=== PATIENT | male | born 1945 | race Caucasian/White ===

== ENCOUNTER → 2017-02-09 | Outpatient (CLI) | payer MEDICARE, OTHER ==
[2017-02-09 10:30] LABS: Blood Urea Nitrogen 20 mg/dL (9-20); Non-African American GFR(MDRD) >60 (>60 ml/min/1.73 sqM)
--- NOTE | 2017-02-09 11:12 | CT ---
EXAMINATION TYPE: CT chest wo/w con DATE OF EXAM: 02/09/2017 10:50 AM COMPARISON: 12/07/2015 HISTORY: Pulmonary nodule CT DLP: 1138 mGycm Automated exposure control for dose reduction was used. CONTRAST: CT scan of the chest is performed without and with IV Contrast, patient injected with 100 mL of Omnip aque 300. FINDINGS: LUNGS: Stable 6 mm nodule left upper lobe seen best on image 40. No additional nodules identified. Hy perinflation with COPD. There is no pleural effusion or pneumothorax seen. The tracheobronchial tree is patent. MEDIASTINUM: There are no greater than 1 cm hilar or mediastinal lymph nodes. No pericardial effusi on is seen. Ascending thoracic aortic aneurysm unchanged at 4.1 cm versus 4.1 cm previously. The hear t is not enlarged. UPPER ABDOMEN: Thickening of the left adrenal gland may reflect hyperplasia. Simple hepatic cysts ar e noted measuring up to 1.1 cm. OTHER: No additional significant abnormality is seen. IMPRESSION: 1. Stable left upper lobe nodule. Stability over a two-year timeframe should be documented radiograph ically. 2. COPD. 3. Stable ascending thoracic aortic aneurysm.
== END | disposition home or self-care (01) ==
LOC: RADCTMAIN 09:58
PROVIDERS: ATTEND Family Medicine
DX: R91.1 Solitary pulmonary nodule (principal); J44.9 Chronic obstructive pulmonary disease, unspecified; I71.2 Thoracic aortic aneurysm, without rupture
CPT/HCPCS: 82565; 84520; 71270; 36415; Q9967

== ENCOUNTER 2017-12-05 08:47 | Emergency (ER) | payer MEDICARE, BC ==
[2017-12-05] MEDS ORDERED: ASPIRIN 81 MG PO STA (08:56)
[2017-12-05 09:43] LABS: Basophils % (A) 0 %; Eosinophils # (A) 0.2 k/uL (0-0.7); Eosinophils % (A) 1 %; HGB 16.7 gm/dL (13.0-17.5); Lymphocytes # (A) 1.3 k/uL (1.0-4.8); Lymphocytes % (A) 10 %; MCH 30.1 pg (25.0-35.0); MCHC 33.4 g/dL (31.0-37.0); MCV 90.1 fL (80.0-100.0); Monocytes # (A) 0.9 k/uL (0-1.0); Monocytes % (A) 7 %; Neutrophils # (A) 10.1 k/uL (1.3-7.7); Neutrophils % (A) 80 %; Platelet Count 227 k/uL (150-450); RBC 5.55 m/uL (4.30-5.90); RDW 14.2 % (11.5-15.5); WBC 12.6 k/uL (3.8-10.6)
--- NOTE | 2017-12-05 09:44 | XR ---
EXAMINATION TYPE: XR chest 2V DATE OF EXAM: 12/05/2017 COMPARISON: 02/09/2017 TECHNIQUE: PA and lateral views submitted. HISTORY: Chest pain FINDINGS: The lungs are clear and there is no pneumothorax, pleural effusion, or focal pneumonia. Ascending a april is prominent. Previous CT scan suggested 4.1 cm aneurysmal dilation. Degenerative changes spine noted. Hyperinflation compatible COPD. Chronic rib deformity suggests previous trauma. Arthropathy of the shoulders with diffuse osteopenia. No overt failure. IMPRESSION: 1. No acute process. 2. Correlate for COPD 3. Prominence of the ascending aorta. Previous CT scan suggested aneurysm measuring 4.1 cm. Correlate clinically. 4. 6 mm left upper lobe pulmonary nodule.
[2017-12-05 09:49] LABS: Partial Thromboplastin Time 22.8 sec (22.0-30.0); Prothrombin Time 10.2 sec (9.0-12.0)
[2017-12-05 10:02] LABS: ALT 28 U/L (21-72); AST 18 U/L (17-59); Albumin 4.4 g/dL (3.5-5.0); Alkaline Phosphatase 99 U/L (38-126); Anion Gap 10 mmol/L; Blood Urea Nitrogen 18 mg/dL (9-20); Carbon Dioxide 25 mmol/L (22-30); Chloride 106 mmol/L (98-107); Glucose 95 mg/dL (74-99); Lipase 152 U/L (23-300); Sodium 141 mmol/L (137-145); Total Bilirubin 0.5 mg/dL (0.2-1.3); Total Protein 6.9 g/dL (6.3-8.2)
--- NOTE | 2017-12-05 13:58 | ECHOF ---
Referral Reason:chest pain MEASUREMENTS -------- HEIGHT: 177.8 cm WEIGHT: 72.6 kg BP: 152/98 RVIDd: 3.2 cm (< 3.3) IVSd: 1.2 cm (0.6 - 1.1) LVIDd: 3.9 cm (3.9 - 5.3) LVPWd: 1.2 cm (0.6 - 1.1) IVSs: 1.4 cm LVIDs: 2.6 cm LVPWs: 1.5 cm LAESV Index (A-L): 16.05 ml/m Ao Diam: 3.9 cm (2.0 - 3.7) AV Cusp: 1.7 cm (1.5 - 2.6) LA Diam: 2.0 cm (2.7 - 3.8) EPSS: 1.0 cm MV E Nelson: 0.67 m/s MV DecT: 308 ms MV A Nelson: 0.87 m/s MV E/A Ratio: 0.78 RAP: 5.00 mmHg RVSP: 24.57 mmHg MV EF SLOPE: 60.97 mm/s (70 - 150) MV EXCURSION: 1.47 cm (> 18.000) FINDINGS -------- Sinus rhythm. This was a technically good study. The left ventricular size is normal. There is mild concentric left ventricular hypertrophy. Overa ll left ventricular systolic function is normal with, an EF between 55 - 60 %. The right ventricle is mildly enlarged. Normal LA size by volume 22+/-6 ml/m2. The right atrium is normal in size. Aortic valve is trileaflet and is mildly thickened. Trace to mild aortic regurgitation. There is no evidence of aortic stenosis. The mitral valve leaflets are mildly thickened. There is trace to mild mitral regurgitation. Mild tricuspid regurgitation present. Right ventricular systolic pressure is normal at < 35 mmHg. There is no evidence of pulmonary hypertension. The pulmonic valve was not well visualized. The aortic root is dilated up to 4.2 cm at the siunuses, and the ascending aorta is dilated measuring up to 3.8 cm. Normal inferior vena cava with normal inspiratory collapse consistent with estimated right atrial pre ssure of 5 mmHg. The pericardium is normal. There is no pericardial effusion. CONCLUSIONS -------- 1. Sinus rhythm. 2. This was a technically good study. 3. The left ventricular size is normal. 4. There is mild concentric left ventricular hypertrophy. 5. Overall left ventricular systolic function is normal with, an EF between 55 - 60 %. 6. The right ventricle is mildly enlarged. 7. Normal LA size by volume 22+/-6 ml/m2. 8. Aortic valve is trileaflet and is mildly thickened. 9. Trace to mild aortic regurgitation. 10. The mitral valve leaflets are mildly thickened. 11. There is trace to mild mitral regurgitation. 12. Mild tricuspid regurgitation present. 13. Right ventricular systolic pressure is normal at < 35 mmHg. 14. There is no evidence of pulmonary hypertension. 15. The pulmonic valve was not well visualized. 16. The aortic root is dilated up to 4.2 cm at the siunuses, and the ascending aorta is dilated measu ring up to 3.8 cm. 17. There is no pericardial effusion. HEARINGS REPORTER: Juan Peterson RDCS
[2017-12-05] MEDS ORDERED: RX INFO: IV CONTRAST WAS GIVEN 1 EACH MISC MISCELLANE PRN (14:06)
--- NOTE | 2017-12-05 15:07 | CT ---
EXAMINATION TYPE: CT angio chest DATE OF EXAM: 12/05/2017 COMPARISON: CT chest 02/09/2017, chest x-ray 12/05/2017 HISTORY: Chest pain CT DLP: 186.90 mGycm Automated exposure control for dose reduction was used. CONTRAST: CTA scan of the thorax is performed without and with IV Contrast, patient injected with 100 ml mL of Omnipaque 350, pulmonary embolism protocol. MIP images are created and reviewed. 3D reconstructed i mages are created on an independent workstation and reviewed. FINDINGS: LUNGS: The lungs are grossly clear, there is no concerning parenchymal mass or nodule identified. C entrilobular emphysematous changes are present at the lung apices. Some linear areas of increased att enuation at the posterior lung bases may reflect some local scarring. Subpleural nodularity again not ed and is stable, likely postinflammatory in the left hemithorax laterally. There is no pleural effus ion or pneumothorax seen. The tracheobronchial tree is patent. AORTA: Root of the aorta is dilated at approximately 4.5 cm similar to prior exam. MEDIASTINUM: There is satisfactory enhancement of the pulmonary artery and its branches, there is no CT evidence for pulmonary embolism. There are no greater than 1 cm hilar or mediastinal lymph nodes. There are coronary artery calcifications present. No pericardial effusion is seen. OTHER: Scattered hypodensities again noted within the liver likely are cysts, stable. Small hiatal hernia and prominence of the left adrenal gland again noted. IMPRESSION: NO EVIDENT PULMONARY EMBOLISM. STABLE ASCENDING AORTIC ANEURYSM. CORONARY ARTERY DISEASE AND EMPHYSEM A. ADDITIONAL FINDINGS ABOVE.
[2017-12-05 15:17] VITALS: BP 147/81; PULSE 70; RESP 17; TEMP 97.6
--- NOTE | 2017-12-05 15:20 | ED ---
Chest Pain HPI - General Chief Complaint: Chest Pain Stated Complaint: Chest pain Time Seen by Provider: 12/05/17 08:56 Source: patient Mode of arrival: wheelchair Limitations: no limitations - History of Present Illness Initial Comments: Patient complains of an episode of chest pain this morning. He has a history of hypertension but denies any other medical problems. He has no belly or back pain. He has pain primarily in the left side of the chest, which does not radiate anywhere. It is nonexertional. He has no shortness of breath. He has no palpitations. He has no diaphoresis, nausea or vomiting. He was not doing anything when this began. He has no swelling in the arms or legs. He denies any sick contacts. He has had no travel. - Related Data Home Medications Medication Instructions Recorded Confirmed Aspirin EC [Ecotrin Low Dose] 81 mg PO DAILY 12/05/17 12/05/17 Allergies Allergy/AdvReac Type Severity Reaction Status Date / Time No Known Allergies Allergy Verified 12/05/17 08:59 Review of Systems ROS Statement: Those systems with pertinent positive or pertinent negative responses have been documented in the HPI. ROS Other: All systems not noted in ROS Statement are negative. EKG Findings - EKG Comments: EKG Findings:: Twelve-lead EKG interpreted by me as showing ventricular rate 90 bpm, normal AL interval and QRS complexes, no ST elevation or depression, interpreted by me as normal sinus rhythm. Past Medical History Additional Past Medical History / Comment(s): vertigo History of Any Multi-Drug Resistant Organisms: None Reported Past Surgical History: Orthopedic Surgery Past Psychological History: No Psychological Hx Reported Smoking Status: Current every day smoker Past Alcohol Use History: Occasional Past Drug Use History: None Reported General Exam Limitations: no limitations General appearance: alert, in no apparent distress Head exam: Present: atraumatic, normocephalic, normal inspection Eye exam: Present: normal appearance, PERRL, EOMI. Absent: scleral icterus, conjunctival injection, periorbital swelling ENT exam: Present: normal exam, mucous membranes moist Neck exam: Present: normal inspection. Absent: tenderness, meningismus, lymphadenopathy Respiratory exam: Present: normal lung sounds bilaterally. Absent: respiratory distress, wheezes, rales, rhonchi, stridor Cardiovascular Exam: Present: regular rate, normal rhythm, normal heart sounds. Absent: systolic murmur, diastolic murmur, rubs, gallop, clicks GI/Abdominal exam: Present: soft, normal bowel sounds. Absent: distended, tenderness, guarding, rebound, rigid Extremities exam: Present: normal inspection, full ROM, normal capillary refill. Absent: tenderness, pedal edema, joint swelling, calf tenderness Back exam: Present: normal inspection Neurological exam: Present: alert, oriented X3, CN II-XII intact Psychiatric exam: Present: normal affect, normal mood Skin exam: Present: warm, dry, intact, normal color. Absent: rash Course Vital Signs 12/05/17 12/05/17 12/05/17 08:50 09:41 11:01 Temperature 97.8 F Pulse Rate 105 H 84 89 Respiratory 20 19 19 Rate Blood Pressure 172/96 175/99 152/98 O2 Sat by Pulse 96 97 98 Oximetry 12/05/17 12/05/17 12:20 15:16 Temperature 97.6 F Pulse Rate 76 70 Respiratory 20 17 Rate Blood Pressure 160/97 147/81 O2 Sat by Pulse 97 97 Oximetry Chest Pain [facility] Patient presents with chest pain. I obtained 2 serial troponins which are both negative. X-ray of the chest is unremarkable. I obtained a CT of the chest which is negative for PE, dissection, or any other acute emergency. I obtained an echocardiogram which demonstrates normal cardiac functioning with no evidence of heart failure other emergency. Patient's examination is unremarkable on my reevaluation. He has remained symptom free throughout his stay in the emerge department. At this point time I can identify no acute emergency condition. I did offer the patient admission the hospital for repeat testing, however he states he must go home to take care of his . He will follow-up with his doctor. I instructed him to return to the emergency department immediately if his symptoms return, or if he develops any other problems or complaints. Disposition Clinical Impression: Chest pain Disposition: HOME SELF-CARE Condition: Good Instructions: Chest Pain (ED) Referrals: Jinny Chakraborty DO [Primary Care Provider] - 1-2 days Time of Disposition: 15:19
== END 2017-12-05 15:22 | disposition home or self-care (01) ==
LOC: EC 08:47
DX: R07.9 Chest pain, unspecified (principal); F17.200 Nicotine dependence, unspecified, uncomplicated; Z79.82 Long term (current) use of aspirin
CPT/HCPCS: 36415; 71046; 71275; 80053; 83690; 83735; 83880; 84484; 85025; 85610; 85730; 93005; 93306; 99285

== ENCOUNTER → 2024-08-23 | Outpatient (CLI) | payer MEDICARE, BC ==
[2024-08-23 13:33] LABS: African American GFR (CKD) >90 (>60 ml/min/1.73 sqM); Blood Urea Nitrogen 28 mg/dL (9-20); Non-African American GFR(CKD) 83 (>60 ml/min/1.73 sqM)
--- NOTE | 2024-08-23 14:48 | CT ---
CT urogram. HISTORY: Hematuria COMPARISON: None. TECHNIQUE: Multiple axial images are obtained through the abdomen and pelvis before and after the une ventful administration of nonionic IV contrast. Delayed postcontrast images were obtained. FINDINGS: Lung bases are clear. On the pre-IV contrast images, there are no renal calcifications or ureteral calcifications. There i s a single gallstone. There is no gallbladder distention, wall thickening or pericholecystic fluid. There are multiple well-circumscribed low-density lesions within the liver the largest of which is in the left lobe and measures 3.1 cm. These most likely represent simple hepatic cysts. There is no foc al mass within the pancreas, or spleen. There is a 16 mm low density nodule in the left adrenal gland most likely representing an adenoma. Kidneys excrete contrast promptly and symmetrically and there is no solid renal mass, hydronephrosis or filling defect within the renal collecting systems or ureters. Bladder. There are single small sim ple cortical cysts bilaterally. There is a 15 mm filling defect within the lumen of the urinary bladd er at the right UVJ. There is a 15-16 mm filling defect at the base of the left urinary bladder. Thes e findings are suspicious for neoplasm and further evaluation is warranted. There is moderate to mary ed prostatic hypertrophy with mass effect on the bladder base. The bowel loops are normal in caliber and there is no dilatation or obstruction. No inflammatory oconnor ges are identified in the bowel wall or mesentery. There is no free intraperitoneal air or fluid. There is no pelvic abscess, adenopathy or free fluid. The osseous structures are intact. IMPRESSION: 1. 2 mural and intraluminal filling defects within the urinary bladder base suspicious for neoplasm a nd further evaluation is warranted. 2. Cholelithiasis. 3. No renal calcification or hydronephrosis. 4. Moderate to marked prostatic hypertrophy. 5. Multiple well-circumscribed low density lesions within the liver statistically most likely represe nting hepatic cysts. [facility], , 08/23/2024 2:45 PM
== END | disposition home or self-care (01) ==
LOC: RADCTMAIN 12:45
PROVIDERS: ATTEND Family Medicine
DX: K80.20 Calculus of gallbladder without cholecystitis without obstruction (principal); N40.0 Benign prostatic hyperplasia without lower urinary tract symptoms; K76.9 Liver disease, unspecified
CPT/HCPCS: 82565; 84520; 74178; 36415; 74400; Q9967

== ENCOUNTER 2024-09-20 13:24 | Inpatient (IN) | payer MEDICARE, BC ==
--- NOTE | 2024-09-20 13:53 | ED ---
General Adult HPI - General Chief complaint: Shortness of Breath Stated complaint: SOB Time Seen by Provider: 09/20/24 13:26 Source: patient, RN notes reviewed, old records reviewed Mode of arrival: ambulatory Limitations: no limitations - History of Present Illness Initial comments: 79 male presenting with cough, hypoxia. Patient was here for outpatient bladder procedure and was noted to be hypoxic. He was sent to primary care and the oxygen saturation was 77%. He was sent to the emergency department for evaluation. Patient is a current smoker. He denies subjective fever or chills but is found to be febrile in the emergency department. He reports a productive cough. - Related Data Home Medications Medication Instructions Recorded Confirmed Aspirin EC [Ecotrin Low Dose] 81 mg PO DAILY 12/05/17 12/05/17 Allergies Allergy/AdvReac Type Severity Reaction Status Date / Time No Known Allergies Allergy Verified 09/20/24 13:29 Review of Systems ROS Statement: Those systems with pertinent positive or pertinent negative responses have been documented in the HPI. ROS Other: All systems not noted in ROS Statement are negative. Past Medical History Additional Past Medical History / Comment(s): vertigo History of Any Multi-Drug Resistant Organisms: None Reported Past Surgical History: Orthopedic Surgery Past Psychological History: No Psychological Hx Reported Smoking Status: Current every day smoker Past Alcohol Use History: Occasional Past Drug Use History: None Reported General Exam Limitations: no limitations General appearance: alert, in no apparent distress Head exam: Present: atraumatic, normocephalic Eye exam: Present: normal appearance, PERRL ENT exam: Present: normal exam Neck exam: Present: normal inspection. Absent: tenderness, meningismus Respiratory exam: Present: wheezes, rhonchi, decreased breath sounds. Absent: respiratory distress Cardiovascular Exam: Present: normal rhythm, tachycardia GI/Abdominal exam: Present: soft. Absent: distended, tenderness, guarding Extremities exam: Present: normal inspection, normal capillary refill. Absent: calf tenderness Neurological exam: Present: alert, oriented X3 Psychiatric exam: Present: normal affect, normal mood Skin exam: Present: warm, dry, intact. Absent: cyanosis, diaphoretic Course Vital Signs 09/20/24 09/20/24 09/20/24 13:26 13:56 15:20 Temperature 101.2 F H Pulse Rate 108 H 82 88 Respiratory 20 24 Rate Blood Pressure 116/57 O2 Sat by Pulse 88 L 95 Oximetry 09/20/24 15:39 Temperature Pulse Rate 90 Respiratory Rate Blood Pressure O2 Sat by Pulse Oximetry Medical Decision Making - Medical Decision Making Was pt. sent in by a medical professional or institution ([facility], [employer] READING TEACHER, urgent care, hospital, or snf...) When possible be specific @ -No Did you speak to anyone other than the patient for history (EMS, parent, family, police, friend...)? What history was obtained from this source @ -No Did you review nursing and triage notes (agree or disagree)? Why? @ -I reviewed and agree with nursing and triage notes Were old charts reviewed (outside hosp., previous admission, EMS record, old EKG, old radiological studies, urgent care reports/EKG's, snf records)? Report findings @ -No old charts were reviewed Differential dyspnea EKG interpreted by me (3pts min.). @Sinus tachycardia rate of 108, VA interval 201, QRS duration 92, QTc [address] segment elevation, artifact limiting assessment in the precordial leads. X-rays interpreted by me (1pt min.). @ -None done CT interpreted by me (1pt min.). @ -None done U/S interpreted by me (1pt. min.). @ -None done What testing was considered but not performed or refused? (CT, X-rays, U/S, labs)? Why? @ -None What meds were considered but not given or refused? Why? @ -None Did you discuss the management of the patient with other professionals (professionals i.e. [facility], [employer] READING TEACHER, lab, RT, psych nurse, social work coordinator, antique furniture repairer, teacher, chief nursing officer, case resolution specialist)? Give summary @ -Discussed with Dr. Murray who who will admit. Was smoking cessation discussed for >3mins.? @ -No Was critical care preformed (if so, how long)? @Yes, 35 minutes Were there social determinants of health that impacted care today? How? (Homelessness, low income, unemployed, alcoholism, drug addiction, transportation, low edu. Level, literacy, decrease access to med. care, penitentiary, rehab)? @ -No Was there de-escalation of care discussed even if they declined (Discuss DNR or withdrawal of care, Hospice)? DNR status @ -No What co-morbidities impacted this encounter? (DM, HTN, Smoking, COPD, CAD, Cancer, CVA, ARF, Chemo, Hep., AIDS, mental health diagnosis, sleep apnea, morbid obesity)? @ -Longtime smoker Was patient admitted / discharged? Hospital course, mention meds given and route, prescriptions, significant lab abnormalities, going to OR and other pert inent info. @ -79-year-old male presents emergency department with fever, hypoxia, worsening chronic cough. Cough is productive. Initial temperature is 101. Patient does require supplemental oxygen. He has decreased air entry with wheezing bilaterally. Chest x-ray does not show consolidated pneumonia. Viral panel is negative. Patient will be treated for likely COPD exacerbation with developing pneumonia. Patient admitted to internal medicine with pulmonology placed on consult. Undiagnosed new problem with uncertain prognosis? @ -No Drug Therapy requiring intensive monitoring for toxicity (Heparin, Nitro, Insulin, Cardizem)? @ -No Were any procedures done? @ -No Diagnosis/symptom? @ -PD, developing pneumonia, hypoxia Acute, or Chronic, or Acute on Chronic? @ -Acute Uncomplicated (without systemic symptoms) or Complicated (systemic symptoms)? @ -Default Side effects of treatment? @ -No Exacerbation, Progression, or Severe Exacerbation? @ -No Poses a threat to life or bodily function? How? (Chest pain, [place], [place], pneumonia, PE, COPD, DKA, ARF, appy, cholecystitis, CVA, Diverticulitis, Homicidal, Suicidal, threat to staff... and all critical care pts) @ -Yes, respiratory failure, sepsis, hypoxia - Lab Data Result diagrams: 09/20/24 13:59 09/20/24 13:59 Lab Results 09/20/24 09/20/24 09/20/24 Range/Units 13:59 13:59 13:59 WBC 13.9 H (3.8-10.6) k/uL RBC 4.64 (4.30-5.90) m/uL Hgb 13.7 (13.0-17.5) gm/dL Hct 43.4 (39.0-53.0) % MCV 93.6 (80.0-100.0) fL MCH 29.6 (25.0-35.0) pg MCHC 31.6 (31.0-37.0) g/dL RDW 14.6 (11.5-15.5) % Plt Count 197 (150-450) k/uL MPV 8.2 Neutrophils % 83 % Lymphocytes % 5 % Monocytes % 10 % Eosinophils % 0 % Basophils % 0 % Neutrophils # 11.5 H (1.3-7.7) k/uL Lymphocytes # 0.6 L (1.0-4.8) k/uL Monocytes # 1.4 H (0-1.0) k/uL Eosinophils # 0.0 (0-0.7) k/uL Basophils # 0.0 (0-0.2) k/uL Hypochromasia Moderate PT 10.7 (10.0-12.5) sec INR 1.0 (<1.2) APTT 28.2 (22.0-30.0) sec Sodium 140 (137-145) mmol/L Potassium 4.1 (3.5-5.1) mmol/L Chloride 106 (98-107) mmol/L Carbon Dioxide 27 (22-30) mmol/L Anion Gap 7 mmol/L BUN 31 H (9-20) mg/dL Creatinine 0.78 (0.66-1.25) mg/dL Est GFR (CKD-EPI)AfAm >90 (>60 ml/min/1.73 sqM) Est GFR (CKD-EPI)NonAf 87 (>60 ml/min/1.73 sqM) Glucose 212 H (74-99) mg/dL Plasma Lactic Acid [place] (0.7-2.0) mmol/L Calcium 9.3 (8.4-10.2) mg/dL Magnesium 2.2 (1.6-2.3) mg/dL Total Bilirubin 0.8 (0.2-1.3) mg/dL AST 24 (17-59) U/L ALT 18 (4-49) U/L Alkaline Phosphatase 76 (38-126) U/L Total Protein 6.4 (6.3-8.2) g/dL Albumin 4.0 (3.5-5.0) g/dL Influenza Type A (PCR) (Not Detectd) Influenza Type B (PCR) (Not Detectd) RSV (PCR) (Not Detectd) SARS-CoV-2 (PCR) (Not Detectd) 09/20/24 09/20/24 Range/Units 13:59 13:59 WBC (3.8-10.6) k/uL RBC (4.30-5.90) m/uL Hgb (13.0-17.5) gm/dL Hct (39.0-53.0) % MCV (80.0-100.0) fL MCH (25.0-35.0) pg MCHC (31.0-37.0) g/dL RDW (11.5-15.5) % Plt Count (150-450) k/uL MPV Neutrophils % % Lymphocytes % % Monocytes % % Eosinophils % % Basophils % % Neutrophils # (1.3-7.7) k/uL Lymphocytes # (1.0-4.8) k/uL Monocytes # (0-1.0) k/uL Eosinophils # (0-0.7) k/uL Basophils # (0-0.2) k/uL Hypochromasia PT (10.0-12.5) sec INR (<1.2) APTT (22.0-30.0) sec Sodium (137-145) mmol/L Potassium (3.5-5.1) mmol/L Chloride (98-107) mmol/L Carbon Dioxide (22-30) mmol/L Anion Gap mmol/L BUN (9-20) mg/dL Creatinine (0.66-1.25) mg/dL Est GFR (CKD-EPI)AfAm (>60 ml/min/1.73 sqM) Est GFR (CKD-EPI)NonAf (>60 ml/min/1.73 sqM) Glucose (74-99) mg/dL Plasma Lactic Acid [place] 2.4 H* (0.7-2.0) mmol/L Calcium (8.4-10.2) mg/dL Magnesium (1.6-2.3) mg/dL Total Bilirubin (0.2-1.3) mg/dL AST (17-59) U/L ALT (4-49) U/L Alkaline Phosphatase (38-126) U/L Total Protein (6.3-8.2) g/dL Albumin (3.5-5.0) g/dL Influenza Type A (PCR) Not Detected (Not Detectd) Influenza Type B (PCR) Not Detected (Not Detectd) RSV (PCR) Not Detected (Not Detectd) SARS-CoV-2 (PCR) Not Detected (Not Detectd) Critical Care Time Critical Care Time: Yes Total Critical Care Time: 35 Disposition Clinical Impression: Acute exacerbation of chronic obstructive pulmonary disease Disposition: ADMITTED IP TO THIS HOSP Condition: Stable Is patient prescribed a controlled substance at d/c from ED?: No Referrals: Lamont Mary MD [Primary Care Provider] - 1-2 days Time of Disposition: 15:43
[2024-09-20] MEDS: ACETAMINOPHEN TAB 500 MG TAB PO STA (14:01)
[2024-09-20] MEDS: SODIUM CHLORIDE 0.9% 1,000 ML IV ONE (14:01)
--- NOTE | 2024-09-20 14:03 | XR ---
EXAMINATION TYPE: XR chest 2V DATE OF EXAM: 09/20/2024 1:53 PM COMPARISON: Chest radiographs from 09/20/2024 CLINICAL INDICATION: Male, 79 years old with history of difficulty breathing; TECHNIQUE: XR chest 2V Frontal and lateral views of the chest. FINDINGS: Lungs/Pleura: There is flattening of the diaphragm with increased lucency of the lungs. No evidence o f pneumothorax, pleural effusion or focal consolidation. Pulmonary vascularity: Unremarkable. Heart/mediastinum: Cardiomediastinal silhouette is unremarkable. Musculoskeletal: No acute osseous pathology. Other findings: None Lines/Tubes: IMPRESSION: 1. No acute cardiopulmonary disease process. 2. COPD changes. [facility], , 09/20/2024 2:01 PM
[2024-09-20 14:11] LABS: Basophils % (A) 0 %; Eosinophils % (A) 0 %; HCT 43.4 % (39.0-53.0); HGB 13.7 gm/dL (13.0-17.5); Hypochromasia Moderate; Lymphocytes # (A) 0.6 k/uL (1.0-4.8); Lymphocytes % (A) 5 %; MCH 29.6 pg (25.0-35.0); MCHC 31.6 g/dL (31.0-37.0); MCV 93.6 fL (80.0-100.0); Mean Platelet Volume 8.2; Monocytes # (A) 1.4 k/uL (0-1.0); Monocytes % (A) 10 %; Neutrophils # (A) 11.5 k/uL (1.3-7.7); Neutrophils % (A) 83 %; Platelet Count 197 k/uL (150-450); RBC 4.64 m/uL (4.30-5.90); RDW 14.6 % (11.5-15.5); WBC 13.9 k/uL (3.8-10.6)
[2024-09-20 14:39] LABS: ALT 18 U/L (4-49); AST 24 U/L (17-59); African American GFR (CKD) >90 (>60 ml/min/1.73 sqM); Alkaline Phosphatase 76 U/L (38-126); Anion Gap 7 mmol/L; Blood Urea Nitrogen 31 mg/dL (9-20); Calcium 9.3 mg/dL (8.4-10.2); Carbon Dioxide 27 mmol/L (22-30); Chloride 106 mmol/L (98-107); Glucose 212 mg/dL (74-99); Magnesium 2.2 mg/dL (1.6-2.3); Non-African American GFR(CKD) 87 (>60 ml/min/1.73 sqM); Potassium 4.1 mmol/L (3.5-5.1); Sodium 140 mmol/L (137-145); Total Bilirubin 0.8 mg/dL (0.2-1.3); Total Protein 6.4 g/dL (6.3-8.2)
[2024-09-20 14:44] LABS: Partial Thromboplastin Time 28.2 sec (22.0-30.0); Prothrombin Time 10.7 sec (10.0-12.5)
[2024-09-20] MEDS: ALBUTEROL NEBULIZED 2.5 MG/3 ML INHALATION STA (15:19)
[2024-09-20] MEDS: IPRATROPIUM-ALBUTEROL 3 ML NEB INHALATION STA (15:19)
[2024-09-20] MEDS ORDERED: NALOXONE 0.4 MG/ML 1 ML VIAL IVP PRN (15:36)
[2024-09-20] MEDS ORDERED: IPRATROPIUM-ALBUTEROL 3 ML NEB INHALATION PRN (15:36)
[2024-09-20 15:48] LABS: Appearance,Urine Cloudy (Clear); Bilirubin,Urine Negative (Negative); Blood,Urine Large (Negative); Color,Urine Light Red; Glucose,Urine (UA) Negative (Negative); Ketones,Urine 1+ (Negative); Leukocyte Esterase,Urine Negative (Negative); Mucus,Urine Rare /hpf; Nitrite,Urine Negative (Negative); PH, Urine 5.5 (5.0-8.0); Protein,Urine 1+ (Negative); RBC,Urine >182 /hpf (0-5); Specific Gravity,Urine 1.023 (1.001-1.035); Squamous Epithelial Cell,Urine <1 /hpf (0-4); Urobilinogen,Urine <2.0 mg/dL (<2.0); WBC,Urine 38 /hpf (0-5)
[2024-09-20] MEDS: methylPREDNISolone SOD SUCCI 125 MG/2 ML VIAL IV STA (15:52)
[2024-09-20] MEDS: IPRATROPIUM-ALBUTEROL 3 ML NEB INHALATION SCH (17:09)
[2024-09-20] MEDS: AZITHROMYCIN 500 MG in SODIUM CHLORIDE 0.9% 250 ML IVPB STA (17:25)
[2024-09-20] MEDS: HEPARIN SODIUM,PORCINE 5,000 UNIT/ML 1 ML VIAL SQ SCH (23:24)
[2024-09-20] MEDS: methylPREDNISolone SOD SUCCI 125 MG/2 ML VIAL IV SCH (23:25)
--- NOTE | 2024-09-20 23:54 | P.HPIM ---
History of Present Illness H&P Date: 09/20/24 Chief Complaint: Shortness of breath and hypoxia Patient is a 79-year-old male with ongoing nicotine addiction was scheduled for outpatient cystoscopy around 11 AM. Patient was found to be hypoxic with pulse ox. 85 to 90%. Patient states that he has been having difficulty in breathing for the past few days. No prior history of COPD diagnosis. Patient is also complaining of subjective fever. No chills. Patient does have chronic cough. No complaints of chest pain. Denies any leg swelling. Chest x-ray showed no acute cardiopulmonary process. COPD changes. EKG showed sinus tachycardia with heart rate 108 Patient was febrile Tmax 101.2 with heart rate 108 on admission and pulse ox 88% on room air in the ER. Laboratory data showed WBC 13.9 hemoglobin 13.7 and platelets 197 Sodium 140 potassium 4.1 chloride 106 bicarb is 27 BUN 31 and creatinine 0.78 and blood sugar 212 and lactic acid 2.4. Urinalysis showed light red cloudy with 1+ protein glucose negative ketones 1+ blood large leukocyte esterase negative with elevated RBCs and WBCs 38 Influenza A B RSV and COVID-19 PCR not detected. Review of Systems Constitutional: Patient does have subjective fevers. No chills.. No generalized weakness or weight loss. Abdomen: Patient denied nausea vomiting and diarrhea and abdominal pain. Cardiovascular: Patient denies any chest pain or short of breath no palpitations. Respiratory: patient chronic cough with michelle sputum production and shortness of breath Neurologic: Patient denied any numbness or tingling. no headache. Musculoskeletal: Patient denies any complaints of joint swelling or deformity. Skin: Negative Psychiatric: Negative Endocrine: No heat or cold intolerance. No recent weight gain. Genitourinary: No dysuria or hematuria. All other 14 point ROS negative except the above Past Medical History Additional Past Medical History / Comment(s): vertigo History of Any Multi-Drug Resistant Organisms: None Reported Past Surgical History: Orthopedic Surgery Past Psychological History: No Psychological Hx Reported Smoking Status: Current every day smoker Past Alcohol Use History: Occasional Past Drug Use History: None Reported Medications and Allergies Home Medications Medication Instructions Recorded Confirmed Type Aspirin EC [Ecotrin Low Dose] 81 mg PO DAILY 12/05/17 12/05/17 History Allergies Allergy/AdvReac Type Severity Reaction Status Date / Time No Known Allergies Allergy Verified 09/20/24 13:29 Physical Exam Vitals: Vital Signs Temp Pulse Resp BP Pulse Ox 09/20/24 18:00 87 20 109/60 95 09/20/24 17:28 87 20 107/66 95 09/20/24 16:13 83 20 119/61 92 L 09/20/24 15:39 90 09/20/24 15:20 88 09/20/24 13:56 82 24 95 09/20/24 13:26 101.2 F H 108 H 20 116/57 88 L Intake and Output 09/20/24 09/20/24 09/20/24 06:59 14:59 22:59 Other: Weight 68.039 kg PHYSICAL EXAMINATION: Patient is lying in the bed comfortably, no acute distress, awake alert and oriented.. HEENT: Normocephalic. Neck is supple. Pupils reactive. Nostrils clear. Oral cavity is moist. Neck reveals no JVD, carotid bruits, or thyromegaly. CHEST EXAMINATION: Trachea is central. Symmetrical expansion. Bilateral diminished air entry diffuse wheezing and rhonchi. Nonlabored breathing.. CARDIAC: Normal S1, S2 with no gallops. No murmurs ABDOMEN: Soft. Bowel sounds normal. No organomegaly. No abdominal bruits. Extremities: reveal no edema. No clubbing or cyanosis Neurologically awake, alert, oriented x3 with well-coordinated movements. No focal deficits noted Skin: No rash or skin lesions. Psychiatric: Coperative. Nonsuicidal Musculoskeletal: No joint swelling or deformity. Normal range of motion. Results CBC & Chem 7: 09/20/24 13:59 09/20/24 13:59 Labs: Abnormal Lab Results - Last 24 Hours (Table) 09/20/24 09/20/24 09/20/24 Range/Units 13:59 13:59 13:59 WBC 13.9 H (3.8-10.6) k/uL Neutrophils # 11.5 H (1.3-7.7) k/uL Lymphocytes # 0.6 L (1.0-4.8) k/uL Monocytes # 1.4 H (0-1.0) k/uL BUN 31 H (9-20) mg/dL Glucose 212 H (74-99) mg/dL Plasma Lactic Acid [place] 2.4 H* (0.7-2.0) mmol/L Urine Protein (Negative) Urine Ketones (Negative) Urine Blood (Negative) Urine RBC (0-5) /hpf Urine WBC (0-5) /hpf Urine Mucus (None) /hpf 09/20/24 09/20/24 Range/Units 13:59 17:33 WBC (3.8-10.6) k/uL Neutrophils # (1.3-7.7) k/uL Lymphocytes # (1.0-4.8) k/uL Monocytes # (0-1.0) k/uL BUN (9-20) mg/dL Glucose (74-99) mg/dL Plasma Lactic Acid [place] 2.1 H* (0.7-2.0) mmol/L Urine Protein 1+ H (Negative) Urine Ketones 1+ H (Negative) Urine Blood Large H (Negative) Urine RBC >182 H (0-5) /hpf Urine WBC 38 H (0-5) /hpf Urine Mucus Rare H (None) /hpf Thrombosis Risk Factor Assmnt - DVT/VTE Prophylaxis DVT/VTE Prophylaxis: Pharmacologic Prophylaxis ordered Assessment and Plan Assessment: Shortness of breath secondary to COPD exacerbation Acute hypoxic respiratory failure requiring oxygen at 2 L via nasal cannula secondary to COPD exacerbation Purulent tracheobronchitis Ongoing nicotine addiction History of bladder mass. Patient is scheduled for cystoscopy today DVT prophylaxis heparin subcu Plan: Patient will be continued on telemonitoring. Continue with IV Solu-Medrol 60 mg Q6 hourly and DuoNebs 4 times daily. Oxygen supplementation as needed. Continue with antibiotics and follow-up azithromycin.. Follow-up culture reports. Pulmonary and urology was consulted for evaluation. Time with Patient: Greater than 30
[2024-09-21] MEDS: AZITHROMYCIN 500 MG TAB PO SCH (08:09)
--- NOTE | 2024-09-21 10:16 | P.GSCN ---
History of Present Illness Consult date: 09/21/24 History of present illness: 79 yo male admitted for febrile tracheobronchitis and copd exacerbation. The patient was to have a cysto with bladder tumor resection at [facility] yesterday but he complained of increasing SOB over the previous several days. His O2 sats didnt get above 88% despite a breathing treatment so the surgery was cancelled and he was sent to his primary care, Dr Mary's office. He was then sent to the er and admitted for the pulmonary issues. Urologically he has had hematuria for several months. He had a cysto in the office recently identifying several papillary bladder tumors. The patient is a long time smoker. The patient is feeling better on the oxygen. His most recent O2 sat was 95% Review of Systems All systems: negative - Constitutional Denies fever, Denies weight loss - EENT Eyes: denies blurred vision Ears, nose, mouth and throat: Denies dysphagia - Cardiovascular Denies chest pain, Denies shortness of breath - Respiratory Reports cough, Reports cough with sputum, Reports dyspnea - Gastrointestinal Reports as per HPI - Genitourinary Reports hematuria, Denies dysuria - Integumentary Denies rash, Denies unusual bruising - Neurological Denies headaches, Denies syncope - Hematologic/Lymphatic Denies easy bleeding, Denies easy bruising Past Medical History Past Medical History: Hyperlipidemia, Prostate Disorder Additional Past Medical History / Comment(s): vertigo, tumors in bladder being addressed by Dr Mcclelland History of Any Multi-Drug Resistant Organisms: None Reported Past Surgical History: Orthopedic Surgery, Tonsillectomy Additional Past Surgical History / Comment(s): cystoscopy, rotator cuff surgery, Past Anesthesia/Blood Transfusion Reactions: No Reported Reaction Past Psychological History: No Psychological Hx Reported Smoking Status: Current every day smoker Past Alcohol Use History: Occasional Past Drug Use History: None Reported Medications and Allergies Home Medications Medication Instructions Recorded Confirmed Type Aspirin EC [Ecotrin Low Dose] 81 mg PO DAILY 12/05/17 09/21/24 History Meloxicam [Mobic] 15 mg PO BID 09/21/24 09/21/24 History Tamsulosin [Flomax] 0.4 mg PO DAILY 09/21/24 09/21/24 History lisinopriL [Zestril] 10 mg PO DAILY 09/21/24 09/21/24 History Allergies Allergy/AdvReac Type Severity Reaction Status Date / Time No Known Allergies Allergy Verified 09/20/24 13:29 Surgical - Exam Vital Signs Temp Pulse Resp BP Pulse Ox 101.2 F H 108 H 20 116/57 88 L 09/20/24 13:26 09/20/24 13:26 09/20/24 13:26 09/20/24 13:26 09/20/24 13:26 - General well developed, well nourished, no distress - Eyes normal ocular movement, no icteric - ENT no hearing loss, no congestion - Neck no masses, trachea midline - Respiratory nasal o2, some dyspnea. - Abdomen Abdomen: soft, non tender, no guarding, no rigid, no rebound - Integumentary no rash, no abnormal pigmentation - Neurologic no disoriented, no combative - Psychiatric oriented to time, oriented to person, oriented to place, speech is normal, memory intact Results - Labs 09/20/24 13:59 09/20/24 13:59 Abnormal Lab Results - Last 24 Hours (Table) 09/20/24 09/20/24 09/20/24 Range/Units 13:59 13:59 13:59 WBC 13.9 H (3.8-10.6) k/uL Neutrophils # 11.5 H (1.3-7.7) k/uL Lymphocytes # 0.6 L (1.0-4.8) k/uL Monocytes # 1.4 H (0-1.0) k/uL BUN 31 H (9-20) mg/dL Glucose 212 H (74-99) mg/dL Plasma Lactic Acid [place] 2.4 H* (0.7-2.0) mmol/L Urine Protein (Negative) Urine Ketones (Negative) Urine Blood (Negative) Urine RBC (0-5) /hpf Urine WBC (0-5) /hpf Urine Mucus (None) /hpf 09/20/24 09/20/24 Range/Units 13:59 17:33 WBC (3.8-10.6) k/uL Neutrophils # (1.3-7.7) k/uL Lymphocytes # (1.0-4.8) k/uL Monocytes # (0-1.0) k/uL BUN (9-20) mg/dL Glucose (74-99) mg/dL Plasma Lactic Acid [place] 2.1 H* (0.7-2.0) mmol/L Urine Protein 1+ H (Negative) Urine Ketones 1+ H (Negative) Urine Blood Large H (Negative) Urine RBC >182 H (0-5) /hpf Urine WBC 38 H (0-5) /hpf Urine Mucus Rare H (None) /hpf Diabetes panel 09/20/24 Range/Units 13:59 Sodium 140 (137-145) mmol/L Potassium 4.1 (3.5-5.1) mmol/L Chloride 106 (98-107) mmol/L Carbon Dioxide 27 (22-30) mmol/L BUN 31 H (9-20) mg/dL Creatinine 0.78 (0.66-1.25) mg/dL Glucose 212 H (74-99) mg/dL Calcium 9.3 (8.4-10.2) mg/dL AST 24 (17-59) U/L ALT 18 (4-49) U/L Alkaline Phosphatase 76 (38-126) U/L Total Protein 6.4 (6.3-8.2) g/dL Albumin 4.0 (3.5-5.0) g/dL Calcium panel 09/20/24 Range/Units 13:59 Calcium 9.3 (8.4-10.2) mg/dL Albumin 4.0 (3.5-5.0) g/dL Pituitary panel 09/20/24 Range/Units 13:59 Sodium 140 (137-145) mmol/L Potassium 4.1 (3.5-5.1) mmol/L Chloride 106 (98-107) mmol/L Carbon Dioxide 27 (22-30) mmol/L BUN 31 H (9-20) mg/dL Creatinine 0.78 (0.66-1.25) mg/dL Glucose 212 H (74-99) mg/dL Calcium 9.3 (8.4-10.2) mg/dL Adrenal panel 09/20/24 Range/Units 13:59 Sodium 140 (137-145) mmol/L Potassium 4.1 (3.5-5.1) mmol/L Chloride 106 (98-107) mmol/L Carbon Dioxide 27 (22-30) mmol/L BUN 31 H (9-20) mg/dL Creatinine 0.78 (0.66-1.25) mg/dL Glucose 212 H (74-99) mg/dL Calcium 9.3 (8.4-10.2) mg/dL Total Bilirubin 0.8 (0.2-1.3) mg/dL AST 24 (17-59) U/L ALT 18 (4-49) U/L Alkaline Phosphatase 76 (38-126) U/L Total Protein 6.4 (6.3-8.2) g/dL Albumin 4.0 (3.5-5.0) g/dL Assessment and Plan Assessment: Impression: bladder cancer. copd with exacerbation aggravated by tracheobronchitis. Plan: the patient will need a turbt but this will require an anesthetic so therefore will be postponed until his pulmonary status has been evaluated and treated.This has been discussed at length with the patient and his family.
[2024-09-21 10:45] LABS: Basophils # (A) 0.01 X 10*3/uL (0.00-0.10); Basophils % (A) 0.1 %; Eosinophils # (A) 0 X 10*3/uL (0.04-0.35); Eosinophils % (A) 0 %; HCT 38.8 % (39.6-50.0); HGB 11.9 g/dL (13.0-17.0); Lymphocytes # (A) 0.42 X 10*3/uL (0.90-5.00); Lymphocytes % (A) 4.9 %; MCH 28.6 pg (27.0-32.0); MCHC 30.7 g/dL (32.0-37.0); MCV 93.3 FL (80.0-97.0); Mean Platelet Volume 11.4 FL (9.5-12.2); Monocytes # (A) 0.33 X 10*3/uL (0.20-1.00); Monocytes % (A) 3.9 %; NRBC Per 100 WBC 0 X 10*3/uL (0.00-0.01); Neutrophils # (A) 7.69 X 10*3/uL (1.80-7.70); Neutrophils % (A) 90.6 %; Platelet Count 188 X 10*3/uL (140-440); RBC 4.16 X 10*6/uL (4.40-5.60); RDW 15.8 % (11.5-14.5); WBC 8.49 X 10*3/uL (4.50-10.00)
[2024-09-21 10:56] LABS: BUN/Creat Ratio 39.38 Ratio (12.00-20.00); Blood Urea Nitrogen 31.5 mg/dL (9.0-27.0); Calcium 8.6 mg/dL (8.7-10.3); Carbon Dioxide 24.2 mmol/L (21.6-31.8); Chloride 109 mmol/L (96-109); Glucose 169 mg/dL (70-110); Potassium 4.4 mmol/L (3.5-5.5); Sodium 144 mmol/L (135-145)
--- NOTE | 2024-09-21 14:36 | P.CNPUL ---
History of Present Illness Consult date: 09/21/24 Reason for consult: dyspnea, COPD History of present illness: This is a 79-year-old male patient who is being seen in consultation for shortness of breath. The patient is a chronic smoker carries more than [id number] smoking history. He also has bladder cancer with intermittent hematuria. The patient came into the hospital because of worsening shortness of breath and the patient was getting short of breath with the amount of activity. He also had some cough and congestion. No pleurisy no hemoptysis. His Tmax was one 1.2 at the time of admission and was slightly cardiac. His white cell count was at 13.9 when he was 13.7 and platelet count of 197. Lactic acid level was at 2.4. Sodium was at 140 with a potassium of 4.1 and a serum bicarb of 27. The BUN was 31 with a creatinine of 0.7. The viral screen was negative. The chest x-ray was reviewed and is consistent with COPD and hyperinflation. No airspace disease. No consolidation. No other acute abnormalities noted. Noted the patient is not oxygen dependent. He was not using any form of maintenance respiratory medication on outpatient basis and was smoking up to recently. He is currently on DuoNeb updrafts. He is also on Zithromax orally and IV Solu- Medrol. Is currently on oxygen at 2 L with a pulse ox of 96%. Awake and alert. No signs of any CO2 narcosis. Review of Systems Constitutional: Reports as per HPI Eyes: denies as per HPI, denies blurred vision, denies bulging eye, denies decre ased vision, denies diplopia, denies discharge, denies dry eye, denies irritation, denies itching, denies pain, denies photophobia, denies loss of peripheral vision, denies loss of vision, denies tunnel vision/blind spots Ears: deny: decreased hearing, ear discharge, earache, tinnitus Ears, nose, mouth and throat: Reports as per HPI Breasts: absent: as per HPI, gynecomastia Cardiovascular: Reports decreased exercise tolerance, Reports dyspnea on exertion Respiratory: Reports cough, Reports dyspnea Gastrointestinal: Reports as per HPI Genitourinary: Reports as per HPI Musculoskeletal: Reports as per HPI Musculoskeletal: absent: ankle pain, ankle stiffness, ankle swelling, as per HPI, elbow pain, elbow stiffness, elbow swelling, foot pain, foot stiffness, foot swelling, hand pain, hand stiffness, hand swelling, hip pain, hip stiffness, hip swelling, knee pain, knee stiffness, knee swelling, shoulder pain, shoulder stiffness, shoulder swelling, wrist pain, wrist stiffness, wrist swelling Integumentary: Reports as per HPI Neurological: Reports as per HPI Psychiatric: Reports as per HPI Endocrine: Reports as per HPI Hematologic/Lymphatic: Reports as per HPI Allergic/Immunologic: Reports as per HPI Past Medical History Past Medical History: Cancer (Bladder cancer), Hyperlipidemia, Prostate Disorder Additional Past Medical History / Comment(s): vertigo, tumors in bladder being addressed by Dr Mcclelland History of Any Multi-Drug Resistant Organisms: None Reported Past Surgical History: Orthopedic Surgery, Tonsillectomy Additional Past Surgical History / Comment(s): cystoscopy, rotator cuff surgery, Past Anesthesia/Blood Transfusion Reactions: No Reported Reaction Past Psychological History: No Psychological Hx Reported Smoking Status: Current every day smoker Past Alcohol Use History: Occasional Past Drug Use History: None Reported Medications and Allergies Home Medications Medication Instructions Recorded Confirmed Type Aspirin EC [Ecotrin Low Dose] 81 mg PO DAILY 12/05/17 09/21/24 History Atorvastatin [Lipitor] 10 mg PO HS 09/21/24 09/21/24 History Meloxicam [Mobic] 15 mg PO DAILY 09/21/24 09/21/24 History Tamsulosin [Flomax] 0.4 mg PO DAILY 09/21/24 09/21/24 History lisinopriL [Zestril] 10 mg PO DAILY 09/21/24 09/21/24 History tadalafiL 5 mg PO DAILY PRN 09/21/24 09/21/24 History tiZANidine [Zanaflex] 2 mg PO BID PRN 09/21/24 09/21/24 History Allergies Allergy/AdvReac Type Severity Reaction Status Date / Time No Known Allergies Allergy Verified 09/21/24 12:45 Physical Exam Vitals: Vital Signs Temp Pulse Pulse Resp BP BP Pulse Ox 09/21/24 08:06 74 09/21/24 08:00 97.8 F 72 18 136/69 90 L 09/21/24 07:56 72 95 09/21/24 02:13 97.6 F 73 18 148/67 95 09/21/24 01:10 98.1 F 74 16 112/57 97 09/20/24 21:16 72 09/20/24 21:02 74 09/20/24 19:54 97.9 F 75 16 127/69 96 09/20/24 18:00 87 20 109/60 95 09/20/24 17:28 87 20 107/66 95 09/20/24 16:13 83 20 119/61 92 L 09/20/24 15:39 90 09/20/24 15:20 88 09/20/24 13:56 82 24 95 09/20/24 13:26 101.2 F H 108 H 20 116/57 88 L Intake and Output 09/20/24 09/21/24 09/21/24 22:59 06:59 14:59 Output Total 0 Balance 0 Output: Stool 0 Other: Voiding Method Toilet Toilet Urinal # Voids 1 # Emeses 0 Weight 68.039 kg Results - Laboratory Findings CBC and BMP: 09/21/24 04:28 09/21/24 04:28 PT/INR, D-dimer PT 10.7 sec (10.0-12.5) 09/20/24 13:59 INR 1.0 (<1.2) 09/20/24 13:59 Abnormal lab findings: Abnormal Labs 09/20/24 09/20/24 09/20/24 13:59 13:59 13:59 WBC 13.9 H RBC Hgb Hct MCHC RDW Neutrophils # 11.5 H Lymphocytes # 0.6 L Monocytes # 1.4 H Eosinophils # BUN 31 H BUN/Creatinine Ratio Glucose 212 H Plasma Lactic Acid [place] 2.4 H* Calcium Urine Protein Urine Ketones Urine Blood Urine RBC Urine WBC Urine Mucus 09/20/24 09/20/24 09/21/24 13:59 17:33 04:28 WBC RBC 4.16 L Hgb 11.9 L Hct 38.8 L MCHC 30.7 L RDW 15.8 H Neutrophils # Lymphocytes # 0.42 L Monocytes # Eosinophils # 0 L BUN BUN/Creatinine Ratio Glucose Plasma Lactic Acid [place] 2.1 H* Calcium Urine Protein 1+ H Urine Ketones 1+ H Urine Blood Large H Urine RBC >182 H Urine WBC 38 H Urine Mucus Rare H 09/21/24 04:28 WBC RBC Hgb Hct MCHC RDW Neutrophils # Lymphocytes # Monocytes # Eosinophils # BUN 31.5 H BUN/Creatinine Ratio 39.38 H Glucose 169 H Plasma Lactic Acid [place] Calcium 8.6 L Urine Protein Urine Ketones Urine Blood Urine RBC Urine WBC Urine Mucus Assessment and Plan Plan: Acute COPD exacerbation with secondary shortness of breath Acute hypoxic jaylene failure currently on 2 L of oxygen by nasal cannula Chronic smoker Bladder cancer awaiting TURBT and the patient is having intermittent hematuria Hyperlipidemia Anemia of chronic disease Mild lactic acidosis, improving Plan Titrate oxygen flow to maintain saturation above 90% Continue IV Solu-Medrol Continue DuoNeb updrafts Continue empiric antibiotic coverage with Zithromax Discharge in the next 24 to 48 hours Outpatient PFT May need or benefit from maintenance respiratory medications on outpatient basis. Recommend a combination of LAMA LABA such as Stiolto or Anoro Ellipta on an outpatient basis. Also benefit from albuterol rescue inhaler at time of discharge. Urology consultation regarding his bladder tumor. The procedure needs to be delayed for a few weeks till his COPD is under better control and further stabilized.
[2024-09-21] MEDS ORDERED: DEXTROSE 50% SYRINGE 50 ML IVP PRN ×2 (16:24)
[2024-09-21] MEDS: INSULIN ASPART (NovoLOG) 100 UNIT/ML VIAL SQ SCH (17:06)
[2024-09-21 17:10] LABS: Glucose,Whole Blood 162 mg/dL (70-110)
[2024-09-21] MEDS: TAMSULOSIN 0.4 MG CAP.ER.24H PO SCH (17:11)
[2024-09-21 20:23] LABS: Glucose,Whole Blood 167 mg/dL (70-110)
--- NOTE | 2024-09-21 23:20 | P.PN ---
Subjective Progress Note Date: 09/21/24 Patient is a 79-year-old male with ongoing nicotine addiction was scheduled for outpatient cystoscopy around 11 AM. Patient was found to be hypoxic with pulse ox. 85 to 90%. Patient states that he has been having difficulty in breathing for the past few days. No prior history of COPD diagnosis. Patient is also complaining of subjective fever. No chills. Patient does have chronic cough. No complaints of chest pain. Denies any leg swelling. Chest x-ray showed no acute cardiopulmonary process. COPD changes. EKG showed sinus tachycardia with heart rate 108 Patient was febrile Tmax 101.2 with heart rate 108 on admission and pulse ox 88% on room air in the ER. Laboratory data showed WBC 13.9 hemoglobin 13.7 and platelets 197 Sodium 140 potassium 4.1 chloride 106 bicarb is 27 BUN 31 and creatinine 0.78 and blood sugar 212 and lactic acid 2.4. Urinalysis showed light red cloudy with 1+ protein glucose negative ketones 1+ blood large leukocyte esterase negative with elevated RBCs and WBCs 38 Influenza A B RSV and COVID-19 PCR not detected. 09/21/2024 Patient is sitting in the bed. Awake alert and oriented. Requiring 3 L oxygen via nasal cannula. No complaints of chest pain. States that his breathing is much better today. No complaints of cough or sputum production. No headache or dizziness or lightheadedness. Patient has been afebrile. Laboratory showed WBC 8.4 hemoglobin 11.9 and platelets 188 sodium 144 potassium 4.4 chloride 109 bicarb is 24.2 BUN 31.9 creatinine 0.8 and blood sugar 169 and calcium 8.6. Current medications reviewed. Objective - Vital Signs Vital signs: Vital Signs Temp 98.3 F 09/21/24 20:00 Pulse 76 09/21/24 20:04 Resp 16 09/21/24 20:00 BP 137/63 09/21/24 20:00 Pulse Ox 93 L 09/21/24 20:00 FiO2 Intake & Output 09/21/24 09/21/24 09/22/24 06:59 18:59 06:59 Output Total 0 0 Balance 0 0 Weight 68.039 kg Output: Stool 0 0 Other: Voiding Method Toilet Toilet Toilet Urinal # Voids 1 # Emeses 0 - Exam PHYSICAL EXAMINATION: Patient is lying in the bed comfortably, no acute distress, awake alert and oriented.. HEENT: Normocephalic. Neck is supple. Pupils reactive. Nostrils clear. Oral cavity is moist. Neck reveals no JVD, carotid bruits, or thyromegaly. CHEST EXAMINATION: Trachea is central. Symmetrical expansion. Bilateral expiratory wheezing and scattered rhonchi. Nonlabored breathing.. CARDIAC: Normal S1, S2 with no gallops. No murmurs ABDOMEN: Soft. Bowel sounds normal. No organomegaly. No abdominal bruits. Extremities: reveal no edema. No clubbing or cyanosis Neurologically awake, alert, oriented x 2-3 with well-coordinated movements. No focal deficits noted Skin: No rash or skin lesions. Psychiatric: Coperative. Nonsuicidal Musculoskeletal: No joint swelling or deformity. Normal range of motion. - Labs CBC & Chem 7: 09/21/24 04:28 09/21/24 04:28 Labs: Abnormal Lab Results - Last 24 Hours (Table) 09/21/24 09/21/24 09/21/24 Range/Units 04:28 04:28 16:59 RBC 4.16 L (4.40-5.60) X 10*6/uL Hgb 11.9 L (13.0-17.0) g/dL Hct 38.8 L (39.6-50.0) % MCHC 30.7 L (32.0-37.0) g/dL RDW 15.8 H (11.5-14.5) % Lymphocytes # 0.42 L (0.90-5.00) X 10*3/uL Eosinophils # 0 L (0.04-0.35) X 10*3/uL BUN 31.5 H (9.0-27.0) mg/dL BUN/Creatinine Ratio 39.38 H (12.00-20.00) Ratio Glucose 169 H (70-110) mg/dL POC Glucose (mg/dL) 162 H (70-110) mg/dL Calcium 8.6 L (8.7-10.3) mg/dL 09/21/24 Range/Units 20:21 RBC (4.40-5.60) X 10*6/uL Hgb (13.0-17.0) g/dL Hct (39.6-50.0) % MCHC (32.0-37.0) g/dL RDW (11.5-14.5) % Lymphocytes # (0.90-5.00) X 10*3/uL Eosinophils # (0.04-0.35) X 10*3/uL BUN (9.0-27.0) mg/dL BUN/Creatinine Ratio (12.00-20.00) Ratio Glucose (70-110) mg/dL POC Glucose (mg/dL) 167 H (70-110) mg/dL Calcium (8.7-10.3) mg/dL Microbiology - Last 24 Hours (Table) 09/20/24 13:59 Blood Culture - Preliminary Blood Assessment and Plan Assessment: Shortness of breath secondary to COPD exacerbation Acute hypoxic respiratory failure requiring oxygen at 2 L via nasal cannula secondary to COPD exacerbation Purulent tracheobronchitis Ongoing nicotine addiction Bladder mass with intermittent hematuria. Currently awaiting for TURBT DVT prophylaxis heparin subcu Plan: Patient will be continued on telemonitoring. Continue with IV Solu-Medrol 60 mg Q6 hourly and DuoNebs 4 times daily. Oxygen supplementation as needed. Continue with antibiotics and follow-up azithromycin.. Follow-up culture reports. Pulmonary is on board. Urology has seen the patient while in hospital.
[2024-09-22 07:19] LABS: Glucose,Whole Blood 124 mg/dL (70-110)
[2024-09-22 11:42] LABS: Glucose,Whole Blood 171 mg/dL (70-110)
[2024-09-22 11:59] LABS: BUN/Creat Ratio 43.67 Ratio (12.00-20.00); Blood Urea Nitrogen 39.3 mg/dL (9.0-27.0); Calcium 8.8 mg/dL (8.7-10.3); Carbon Dioxide 23.1 mmol/L (21.6-31.8); Chloride 106 mmol/L (96-109); Glucose 243 mg/dL (70-110); Potassium 4.1 mmol/L (3.5-5.5); Sodium 142 mmol/L (135-145)
--- NOTE | 2024-09-22 12:05 | P.PN ---
Subjective Progress Note Date: 09/22/24 the patient is in the hospital pulmonary issues. He had a transurethral resection of a bladder tumor scheduled for Monday but this was canceled due to the pulmonary issues. Dr. Duncan has seen him and recommendations will be followed. Objective - Vital Signs Vital signs: Vital Signs Temp 97.7 F 09/22/24 07:14 Pulse 76 09/22/24 07:47 Resp 18 09/22/24 07:14 BP 142/70 09/22/24 07:14 Pulse Ox 93 L 09/22/24 07:14 FiO2 Intake & Output 09/21/24 09/22/24 09/22/24 18:59 06:59 18:59 Intake Total 540 Output Total 0 Balance 540 Intake: Oral 540 Output: Stool 0 Other: Voiding Method Toilet Toilet Toilet - Labs CBC & Chem 7: 09/21/24 04:28 09/22/24 03:01 Labs: Abnormal Lab Results - Last 24 Hours (Table) 09/21/24 09/21/24 09/22/24 Range/Units 16:59 20:21 03:01 Anion Gap 12.90 H (4.00-12.00) mmol/L BUN 39.3 H (9.0-27.0) mg/dL BUN/Creatinine Ratio 43.67 H (12.00-20.00) Ratio Glucose 243 H (70-110) mg/dL POC Glucose (mg/dL) 162 H 167 H (70-110) mg/dL 09/22/24 09/22/24 Range/Units 07:17 11:41 Anion Gap (4.00-12.00) mmol/L BUN (9.0-27.0) mg/dL BUN/Creatinine Ratio (12.00-20.00) Ratio Glucose (70-110) mg/dL POC Glucose (mg/dL) 124 H 171 H (70-110) mg/dL Microbiology - Last 24 Hours (Table) 09/20/24 13:59 Blood Culture - Preliminary Blood Assessment and Plan Assessment: impression: COPD with exacerbation. Bladder cancer Recommendations: The patient will have a TUR of the bladder tumors when he is stable pulmonary-rivero.
--- NOTE | 2024-09-22 13:03 | P.PN ---
Subjective Progress Note Date: 09/22/24 This is a 79-year-old male patient who is being seen in consultation for shortness of breath. The patient is a chronic smoker carries more than [id number] smoking history. He also has bladder cancer with intermittent hematuria. The patient came into the hospital because of worsening shortness of breath and the patient was getting short of breath with the amount of activity. He also had some cough and congestion. No pleurisy no hemoptysis. His Tmax was one 1.2 at the time of admission and was slightly cardiac. His white cell count was at 13.9 when he was 13.7 and platelet count of 197. Lactic acid level was at 2.4. Sodium was at 140 with a potassium of 4.1 and a serum bicarb of 27. The BUN was 31 with a creatinine of 0.7. The viral screen was negative. The chest x-ray was reviewed and is consistent with COPD and hyperinflation. No airspace disease. No consolidation. No other acute abnormalities noted. Noted the patient is not oxygen dependent. He was not using any form of maintenance respiratory medication on outpatient basis and was smoking up to recently. He is currently on DuoNeb JoyTunesrafts. He is also on Zithromax orally and IV Solu- Medrol. Is currently on oxygen at 2 L with a pulse ox of 96%. Awake and alert. No signs of any CO2 narcosis. On 09/22/2024, the patient is feeling better. Less short of breath. He continues to have some exertional hypoxemia and the patient will need home O2. Otherwise, he is doing well. He remains on IV Solu-Medrol. This will be switched switch to prednisone burst taper at time of discharge. Also recommend, a maintenance of either Stiolto or Anoro at time of discharge. No new complaints otherwise for now. Sodium is at 142, bicarb is at 23, BUN 39 with a creatinine of 0.9. No hematuria. Objective - Vital Signs Vital signs: Vital Signs Temp 97.7 F 09/22/24 07:14 Pulse 76 09/22/24 07:47 Resp 18 09/22/24 07:14 BP 142/70 09/22/24 07:14 Pulse Ox 93 L 09/22/24 07:14 FiO2 Intake & Output 12/21/24 12/22/24 12/22/24 18:59 06:59 18:59 Intake Total 540 Output Total 0 Balance 540 Intake: Oral 540 Output: Stool 0 Other: Voiding Method Toilet Toilet Toilet - Labs CBC & Chem 7: 09/21/24 04:28 09/22/24 03:01 Labs: Abnormal Lab Results - Last 24 Hours (Table) 09/21/24 09/21/24 09/21/24 Range/Units 04:28 04:28 16:59 RBC 4.16 L (4.40-5.60) X 10*6/uL Hgb 11.9 L (13.0-17.0) g/dL Hct 38.8 L (39.6-50.0) % MCHC 30.7 L (32.0-37.0) g/dL RDW 15.8 H (11.5-14.5) % Lymphocytes # 0.42 L (0.90-5.00) X 10*3/uL Eosinophils # 0 L (0.04-0.35) X 10*3/uL BUN 31.5 H (9.0-27.0) mg/dL BUN/Creatinine Ratio 39.38 H (12.00-20.00) Ratio Glucose 169 H (70-110) mg/dL POC Glucose (mg/dL) 162 H (70-110) mg/dL Calcium 8.6 L (8.7-10.3) mg/dL 09/21/24 09/22/24 Range/Units 20:21 07:17 RBC (4.40-5.60) X 10*6/uL Hgb (13.0-17.0) g/dL Hct (39.6-50.0) % MCHC (32.0-37.0) g/dL RDW (11.5-14.5) % Lymphocytes # (0.90-5.00) X 10*3/uL Eosinophils # (0.04-0.35) X 10*3/uL BUN (9.0-27.0) mg/dL BUN/Creatinine Ratio (12.00-20.00) Ratio Glucose (70-110) mg/dL POC Glucose (mg/dL) 167 H 124 H (70-110) mg/dL Calcium (8.7-10.3) mg/dL Microbiology - Last 24 Hours (Table) 09/20/24 13:59 Blood Culture - Preliminary Blood Assessment and Plan Plan: Acute COPD exacerbation with secondary shortness of breath Acute hypoxic jaylene failure currently on 2 L of oxygen by nasal cannula Chronic smoker Bladder cancer awaiting TURBT and the patient is having intermittent hematuria Hyperlipidemia Anemia of chronic disease Mild lactic acidosis, improving Plan He continues to have exertional hypoxemia and the patient will need home O2, to be arranged for him today. Start prednisone burst taper at time of discharge Continue DuoNeb updrafts Continue empiric antibiotic coverage with Zithromax, 5-day course Outpatient PFT upon discharge May need or benefit from maintenance respiratory medications on outpatient basis. Recommend a combination of LAMA LABA such as Stiolto or Anoro Ellipta on an outpatient basis. Also benefit from albuterol rescue inhaler at time of discharge. I recommend starting the patient on Stiolto 2 puffs once a day and albuterol rescue inhaler at time of discharge. This will be arranged by the primary care team. Urology consultation regarding his bladder tumor. The procedure needs to be delayed for a few weeks till his COPD is under better control and further stabilized.
[2024-09-22 17:09] LABS: Glucose,Whole Blood 123 mg/dL (70-110)
[2024-09-22 20:32] LABS: Glucose,Whole Blood 168 mg/dL (70-110)
--- NOTE | 2024-09-22 23:07 | P.PN ---
Subjective Progress Note Date: 09/22/24 Patient is a 79-year-old male with ongoing nicotine addiction was scheduled for outpatient cystoscopy around 11 AM. Patient was found to be hypoxic with pulse ox. 85 to 90%. Patient states that he has been having difficulty in breathing for the past few days. No prior history of COPD diagnosis. Patient is also complaining of subjective fever. No chills. Patient does have chronic cough. No complaints of chest pain. Denies any leg swelling. Chest x-ray showed no acute cardiopulmonary process. COPD changes. EKG showed sinus tachycardia with heart rate 108 Patient was febrile Tmax 101.2 with heart rate 108 on admission and pulse ox 88% on room air in the ER. Laboratory data showed WBC 13.9 hemoglobin 13.7 and platelets 197 Sodium 140 potassium 4.1 chloride 106 bicarb is 27 BUN 31 and creatinine 0.78 and blood sugar 212 and lactic acid 2.4. Urinalysis showed light red cloudy with 1+ protein glucose negative ketones 1+ blood large leukocyte esterase negative with elevated RBCs and WBCs 38 Influenza A B RSV and COVID-19 PCR not detected. 09/21/2024 Patient is sitting in the bed. Awake alert and oriented. Requiring 3 L oxygen via nasal cannula. No complaints of chest pain. States that his breathing is much better today. No complaints of cough or sputum production. No headache or dizziness or lightheadedness. Patient has been afebrile. Laboratory showed WBC 8.4 hemoglobin 11.9 and platelets 188 sodium 144 potassium 4.4 chloride 109 bicarb is 24.2 BUN 31.9 creatinine 0.8 and blood sugar 169 and calcium 8.6. 09/22/2024 Patient is sitting on side of the bed. Awake alert and oriented x 3. Requiring oxygen at 2 L via nasal cannula. Otherwise less bronchospastic and feels better. No complaints of chest pain. No nausea vomiting abdominal pain or diarrhea. No other acute overnight issues. Patient is being continued on IV Solu-Medrol, DuoNebs and antibiotics from alvin thromycin. Patient will need home oxygen evaluation tomorrow. Laboratory data showed sodium 142 potassium 4.1 chloride 106 BUN 39.30 creatinine 0.9 and blood sugar 243. A1c 6.0. Current medications reviewed. Objective - Vital Signs Vital signs: Vital Signs Temp 98.6 F 09/22/24 20:00 Pulse 74 09/22/24 20:00 Resp 12 09/22/24 20:00 BP 134/73 09/22/24 20:00 Pulse Ox 97 09/22/24 20:00 FiO2 Intake & Output 09/22/24 09/22/24 09/23/24 06:59 18:59 06:59 Intake Total 540 Output Total 0 Balance 540 Intake: Oral 540 Output: Stool 0 Other: Voiding Method Toilet Toilet - Exam PHYSICAL EXAMINATION: Patient is lying in the bed comfortably, no acute distress, awake alert and oriented.. HEENT: Normocephalic. Neck is supple. Pupils reactive. Nostrils clear. Oral cavity is moist. Neck reveals no JVD, carotid bruits, or thyromegaly. CHEST EXAMINATION: Trachea is central. Symmetrical expansion. Bilateral expiratory wheezing. No rhonchi or crackles. CARDIAC: Normal S1, S2 with no gallops. No murmurs ABDOMEN: Soft. Bowel sounds normal. No organomegaly. No abdominal bruits. Extremities: reveal no edema. No clubbing or cyanosis Neurologically awake, alert, oriented x 2-3 with well-coordinated movements. No focal deficits noted Skin: No rash or skin lesions. Psychiatric: Coperative. Nonsuicidal Musculoskeletal: No joint swelling or deformity. Normal range of motion. - Labs CBC & Chem 7: 09/21/24 04:28 09/22/24 03:01 Labs: Abnormal Lab Results - Last 24 Hours (Table) 09/22/24 09/22/24 09/22/24 Range/Units 03:01 07:17 11:41 Anion Gap 12.90 H (4.00-12.00) mmol/L BUN 39.3 H (9.0-27.0) mg/dL BUN/Creatinine Ratio 43.67 H (12.00-20.00) Ratio Glucose 243 H (70-110) mg/dL POC Glucose (mg/dL) 124 H 171 H (70-110) mg/dL 09/22/24 09/22/24 Range/Units 17:07 20:30 Anion Gap (4.00-12.00) mmol/L BUN (9.0-27.0) mg/dL BUN/Creatinine Ratio (12.00-20.00) Ratio Glucose (70-110) mg/dL POC Glucose (mg/dL) 123 H 168 H (70-110) mg/dL Microbiology - Last 24 Hours (Table) 09/20/24 13:59 Blood Culture - Preliminary Blood Assessment and Plan Assessment: Shortness of breath secondary to COPD exacerbation Acute hypoxic respiratory failure requiring oxygen at 2 L via nasal cannula se condary to COPD exacerbation Purulent tracheobronchitis Ongoing nicotine addiction Bladder mass with intermittent hematuria. Currently awaiting for TURBT DVT prophylaxis heparin subcu Plan: Patient will be continued on telemonitoring. Continue with IV Solu-Medrol 60 mg Q6 hourly and DuoNebs 4 times daily. Oxygen supplementation as needed. Currently on 2 L via nasal cannula. Home oxygen evaluation tomorrow. Continue with antibiotics and follow-up azithromycin.. Follow-up culture reports. Pulmonary is on board. Urology has seen the patient while in hospital. Anticipate discharge tomorrow with prednisone burst taper, Stiolto 2 puffs once a day and azithromycin course for 5 days total and rescue inhaler. Time with Patient: Greater than 30
[2024-09-23 07:24] LABS: Glucose,Whole Blood 152 mg/dL (70-110)
[2024-09-23 07:42] VITALS: RESP 18
[2024-09-23 08:45] LABS: BUN/Creat Ratio 52.62 Ratio (12.00-20.00); Blood Urea Nitrogen 42.1 mg/dL (9.0-27.0); Carbon Dioxide 25.8 mmol/L (21.6-31.8); Chloride 108 mmol/L (96-109); Glucose 186 mg/dL (70-110); Sodium 143 mmol/L (135-145)
[2024-09-23 09:20] LABS: WBC 9.63 X 10*3/uL (4.50-10.00)
[2024-09-23 09:21] LABS: Basophils # (A) 0.01 X 10*3/uL (0.00-0.10); Basophils % (A) 0.1 %; Eosinophils # (A) 0 X 10*3/uL (0.04-0.35); Eosinophils % (A) 0 %; HGB 11.7 g/dL (13.0-17.0); Lymphocytes # (A) 0.59 X 10*3/uL (0.90-5.00); Lymphocytes % (A) 6.1 %; MCH 28.5 pg (27.0-32.0); MCHC 30.8 g/dL (32.0-37.0); MCV 92.7 FL (80.0-97.0); Mean Platelet Volume 11.4 FL (9.5-12.2); Monocytes # (A) 0.45 X 10*3/uL (0.20-1.00); Monocytes % (A) 4.7 %; NRBC Per 100 WBC 0 X 10*3/uL (0.00-0.01); Neutrophils # (A) 8.52 X 10*3/uL (1.80-7.70); Neutrophils % (A) 88.5 %; Platelet Count 251 X 10*3/uL (140-440); RDW 15.8 % (11.5-14.5)
[2024-09-23 12:30] LABS: Glucose,Whole Blood 132 mg/dL (70-110)
[2024-09-23 13:04] VITALS: BP 143/68; PULSE 84; TEMP 97.5
--- NOTE | 2024-09-23 14:03 | P.DS ---
Providers Date of admission: 09/20/24 15:36 Attending physician: Lucio Murray Consults: 09/20/24 15:36 Consult Physician Routine Consulting Provider: Nicole Duncan Consult Reason/Comments: COPD Do you want consulting provider notified?: Yes 09/20/24 15:41 Consult Physician Routine Consulting Provider: Matt Mcclelland Consult Reason/Comments: Bladder mass Do you want consulting provider notified?: Yes Primary care physician: Lamont Mary MD Hospital Course: Diagnoses: Shortness of breath secondary to COPD exacerbation Acute hypoxic respiratory failure requiring oxygen at 2 L via nasal cannula secondary to COPD exacerbation Purulent tracheobronchitis Ongoing nicotine addiction Bladder mass with intermittent hematuria. Currently awaiting for TURBT Hospital course: Patient is a 79-year-old male with ongoing nicotine addiction was scheduled for outpatient cystoscopy around 11 AM. Patient was found to be hypoxic with pulse ox. 85 to 90%. Patient states that he has been having difficulty in breathing for the past few days. No prior history of COPD diagnosis. Patient and family aware about his diagnosis of urinary bladder cancer. He follows up with Dr. Mcclelland his urinary bladder procedure was held till resolution of his COPD and hypoxia issue. He was admitted to the hospital for a few days and evaluated by pulmonary service. He was treated with IV steroids-IV Solu-Medrol. Also showed interval improvement and today his breathing is much better and denies chest pain or any other symptom. Patient is eager to go home and he threatened if he is not going to be discharged by 2 PM he is going to leave AMA. Anyhow patient significantly improved clinically and currently he is stable. Will reach out to pulmonary team who cleared her for discharge Patient will require oxygen upon discharge to go home. Oxygen is delivered at bedside per my discussions with the bedside nurse Karla Also patient allow me to talk to his son Al which I called and left a message and also given prescription to talk to his daughter Annabelle patel I called at [phone]. Patient and daughter are aware of his diagnosis of urinary bladder cancer with the recommendation that he needs to be cleared by pulmonary service prior to procedure with a urinary bladder tumor resection. Patient is going to contact Dr. Santiago office within 1 week for appointment. Problems and management plan were discussed with the patient and he verbalized understanding and acceptance Patient was found stable and can be discharged home in guarded prognosis however he needs follow-up as an outpatient. Patient was instructed to follow up with PCP Dr. Mary within one week and patient agrees Patient was instructed to follow-up with hardboard grinder Dr. Santiago in [address] Mcclelland in 2 to 3 weeks Physical exam Gen: patient is a AAOx3, no distress CVS: S1-S2, RRR, no murmur Lungs: B/L CTA, no wheezing Abdomen: soft, no distention, no tenderness, positive bowel sounds Extremity: no leg edema or induration Time spent more than 35 minutes Patient Condition at Discharge: Stable Plan - Discharge Summary New Discharge Prescriptions: New predniSONE 10 mg PO DIRECTED #40 tab Tiotropium Br/Olodaterol HCl [Stiolto Respimat Inhaler (10)] 2 puff INHALATION DAILY 30 Days #1 each Albuterol Inhaler [Ventolin Hfa Inhaler] 2 puff INHALATION QID PRN 30 Days #8 gm PRN Reason: Shortness Of Breath Or Wheezing Continue Aspirin EC [Ecotrin Low Dose] 81 mg PO DAILY Tamsulosin [Flomax] 0.4 mg PO DAILY lisinopriL [Zestril] 10 mg PO DAILY Atorvastatin [Lipitor] 10 mg PO HS Discontinued tadalafiL 5 mg PO DAILY PRN PRN Reason: E.D. Meloxicam [Mobic] 15 mg PO DAILY tiZANidine [Zanaflex] 2 mg PO BID PRN PRN Reason: Muscle Spasm Discharge Medication List Aspirin EC [Ecotrin Low Dose] 81 mg PO DAILY 12/05/17 [History] Atorvastatin [Lipitor] 10 mg PO HS 09/21/24 [History] Tamsulosin [Flomax] 0.4 mg PO DAILY 09/21/24 [History] lisinopriL [Zestril] 10 mg PO DAILY 09/21/24 [History] Albuterol Inhaler [Ventolin Hfa Inhaler] 2 puff INHALATION QID PRN 30 Days #8 gm 09/23/24 [Rx] Tiotropium Br/Olodaterol HCl [Stiolto Respimat Inhaler (10)] 2 puff INHALATION DAILY 30 Days #1 each 09/23/24 [Rx] predniSONE 10 mg PO DIRECTED #40 tab 09/23/24 [Rx] Follow up Appointment(s)/Referral(s): Lamont Mary MD [Primary Care Provider] - 09/30/24 2:15 pm (Appointment at the [facility]. ) Matt Mcclelland MD [STAFF PHYSICIAN] - 2 Weeks Nicole Duncan MD [STAFF PHYSICIAN] - 1 Week Activity/Diet/Wound Care/Special Instructions: Heart healthy diet Activity is restricted till you see your doctor we recommend NOT to drive by yourself to home c/w oxygen therapy upon discharge Discharge Disposition: HOME WITH HOME HEALTH SERVICES
== END 2024-09-23 14:35 | disposition home health service (06) | DRG 190 ==
LOC: EC 13:24 → 5NMEDONC 15:36 → 6NMEDSUR 20:49 → 5NMEDONC 22:14
PROVIDERS: ADMIT Internal Medicine; ATTEND Internal Medicine
DX: J44.1 Chronic obstructive pulmonary disease with (acute) exacerbation (principal); J96.01 Acute respiratory failure with hypoxia; C67.9 Malignant neoplasm of bladder, unspecified; E78.5 Hyperlipidemia, unspecified; F17.210 Nicotine dependence, cigarettes, uncomplicated; Z79.82 Long term (current) use of aspirin; Z79.1 Long term (current) use of non-steroidal anti-inflammatories (NSAID); Z79.899 Other long term (current) drug therapy
CPT/HCPCS: 36415; 71046; 80048; 80053; 81001; 83036; 83605; 83735; 85025; 85610; 85730; 87040; 87636; 93005; 94640; 96361; 96365; 96366; 96367; 96372; 96375; 96376; 99291